=== PATIENT | male | born 1945 | race Caucasian/White ===

== ENCOUNTER 2018-05-27 19:06 | Emergency (ER) | payer MEDICARE ==
[2018-05-27] MEDS ORDERED: ONDANSETRON 4 MG ODT TABLET SL ONE (19:36)
[2018-05-27] MEDS ORDERED: ORPHENADRINE CITRATE 60MG/2ML VIAL IM ONE (19:36)
[2018-05-27] MEDS ORDERED: KETOROLAC 30 MG/ML VIAL IM ONE (19:36)
[2018-05-27] MEDS ORDERED: HYDROMORPHONE HCL 2 MG/ML VIAL IM ONE (19:36)
--- NOTE | 2018-05-27 19:44 | Emergency Department Record ---
History of Present Illness - General Chief Complaint: Back Pain/Injury Stated Complaint: BACK PAIN Time Seen by Provider: 05/27/18 19:22 Source: Patient Mode of Arrival: Ambulatory Limitations: No limitations - History of Present Illness Initial Comments: pt deveoped back pain last weekend while he was packing up his summer home. it has continued and gradually gotten worse. it radiates into his l buttock. he denies numbess and problems with his bowel or bladder. it has progressively gotten worse. Complaint: Back pain Onset/Timin -: Days(s) Similar Symptoms Previously: Yes Place: Home Radiation: Left leg, Flank Severity: Moderate Severity scale (1-10): 10 Quality: Aching, Sharp Consistency: Constant, Intermittent Improves With: Other Worsens With: Movement, Sitting upright Context: Bending, Turning/twisting, While lifting, Other Associated Symptoms: Denies other symptoms Treatments Prior to Arrival: Heat therapy, NSAIDS Treatment Prior to Arrival Comment:: 0900 2 ibuprofen - Related Data Home Medications Medication Instructions Recorded Confirmed Last Taken Lisinopril 20 mg PO DAILY 05/27/18 05/27/18 05/27/18 Lovastatin 20 mg PO QHS 05/27/18 05/27/18 05/26/18 Tamsulosin HCl [Flomax] 0.4 mg PO DAILY 05/27/18 05/27/18 05/27/18 Previous Rx's Medication Instructions Recorded Cyclobenzaprine HCl [Flexeril] 10 mg PO TID #10 tablet 05/27/18 Hydrocodone/Acetaminophen [Galata 1 each PO Q6HR #7 tablet 05/27/18 5-325 Tablet] Ibuprofen [Motrin 600Mg] 600 mg PO Q6H #20 tablet 05/27/18 Allergies Allergy/AdvReac Type Severity Reaction Status Date / Time meperidine Allergy Unknown ANAPHYLAXIS Verified 05/27/18 19:11 Travel Screening - Travel/Exposure Within Last 30 Days Have you traveled within the last 30 days?: No - Travel/Exposure Within Last Year Have you traveled outside the [place] in the last year?: No - Additonal Travel Details Have you been exposed to anyone with a communicable illness?: No - Travel Symptoms Symptom Screening: None Review of Systems Reviewed: No additional complaints except as noted below Constitutional: Reports: As per HPI. Denies: Chills, Fever, Malaise, Night sweats, Weakness, Weight change Eyes: Reports: As per HPI. Denies: Eye discharge, Eye pain, Photophobia, Vision change ENT: Reports: As per HPI. Denies: Congestion, Dental pain, Ear pain, Epistaxis , Hearing loss, Throat pain Respiratory: Reports: As per HPI. Denies: Cough, Dyspnea, Hemoptysis, Stridor, Wheezes Cardiovascular: Reports: As per HPI. Denies: Arrhythmia, Chest pain, Dyspnea on exertion, Edema, Murmurs, Orthopnea, Palpitations, Paroxysmal nocturnal dyspnea, Rheumatic Fever, Syncope Endocrine: Reports: As per HPI. Denies: Fatigue, Heat or cold intolerance, Polydipsia, Polyuria Gastrointestinal: Reports: As per HPI. Denies: Abdominal pain, Constipation, Diarrhea, Hematemesis, Hematochezia, Melena, Nausea, Vomiting Genitourinary: Reports: As per HPI. Denies: Dysuria, Frequency, Hematuria, Incontinence, Retention, Testicular pain, Testicular mass, Urgency Musculoskeletal: Reports: As per HPI. Denies: Arthralgia, Back pain, Gout, Joint swelling, Myalgia, Neck pain Skin: Reports: As per HPI. Denies: Bruising, Change in color, Change in hair/ nails, Lesions, Pruritus, Rash Neurological: Reports: As per HPI. Denies: Abnormal gait, Confusion, Headache, Numbness, Paresthesias, Seizure, Tingling, Tremors, Vertigo, Weakness Psychiatric: Reports: As per HPI. Denies: Anxiety, Auditory hallucinations, Depression, Homicidal thoughts, Suicidal thoughts, Visual hallucinations Hematological/Lymphatic: Reports: As per HPI. Denies: Anemia, Blood Clots, Easy bleeding, Easy bruising, Swollen glands Past Medical History - SOCIAL HISTORY Smoking Status: Never smoker Alcohol Use: Occasional Drug Use: None - RESPIRATORY Hx Respiratory Disorders: No - CARDIOVASCULAR Hx Cardio Disorders: Yes Hx Hypertension: Yes - NEURO Hx Neuro Disorders: Yes Hx of Migraines: Yes (many yrs ago) Hx TIA: Yes - GI Hx GI Disorders: No - Hx Genitourinary Disorders: Yes Hx Prostate Problems: Yes - ENDOCRINE Hx Endocrine Disorders: No - MUSCULOSKELETAL Hx Musculoskeletal Disorders: Yes Hx Arthritis: Yes - PSYCH Hx Psych Problems: No - HEMATOLOGY/ONCOLOGY Hx Hematology/Oncology Disorders: No Family Medical History Any Significant Family History?: No Physical Exam - General General Appearance: Alert, Oriented x3, Cooperative, No acute distress - Head Head exam: Normal inspection - Eye Eye exam: Normal appearance, PERRL, EOMI Pupils: Normal accommodation - ENT ENT exam: Normal exam, Mucous membranes moist, Normal external ear exam, Normal orophraynx Ear exam: Normal external inspection. negative: External canal tenderness Nasal Exam: Normal inspection. negative: Discharge, Sinus tenderness Mouth exam: Normal external inspection, Tongue normal Teeth exam: Normal inspection. negative: Dental caries Throat exam: Normal inspection. negative: Tonsillar erythema, Tonsillar exudate - Neck Neck exam: Normal inspection, Full ROM. negative: Tenderness - Respiratory Respiratory exam: Normal lung sounds bilaterally. negative: Respiratory distress - Cardiovascular Cardiovascular Exam: Regular rate, Normal rhythm, Normal heart sounds - GI/Abdominal GI/Abdominal exam: Soft, Normal bowel sounds. negative: Tenderness - Rectal Rectal exam: Deferred - exam: Deferred - Extremities Extremities exam: Normal inspection, Full ROM, Normal capillary refill. negative: Tenderness - Back Back exam: Reports: Full ROM, Muscle spasm, Tenderness. Denies: Rash noted - Neurological Neurological exam: Alert, CN II-XII intact, Normal gait, Oriented X3 - Psychiatric Psychiatric exam: Normal affect, Normal mood - Skin Skin exam: Dry, Intact, Normal color, Warm Course Vital Signs 05/27/18 19:14 Temperature 97.7 F Pulse Rate 80 Respiratory 20 Rate Blood Pressure 129/81 Pulse Ox 100 Disposition Disposition: Discharge Clinical Impression: Lumbar radiculopathy Disposition: Home, Self-Care Condition: (1) Good Instructions: Lumbar Disc Herniation (ED), Lumbar Radiculopathy (ED), Lower Back Exercises (ED) Additional Instructions: follow up with family doctor. return sooner if worse. ice and moist heat. no lifting more then 5 lbs for 5 days Prescriptions: Hydrocodone/Acetaminophen [Galata 5-325 Tablet] 1 each PO Q6HR #7 tablet Cyclobenzaprine HCl [Flexeril] 10 mg PO TID #10 tablet Ibuprofen [Motrin 600Mg] 600 mg PO Q6H #20 tablet Forms: Patient Portal Access Quality - Quality Measures Quality Measures: N/A - Blood Pressure Screening Does Patient Have Any of the Following: No Blood Pressure Classification: Pre-Hypertensive BP Reading Systolic Measurement: 129 Diastolic Measurement: 81 Screening for High Blood Pressure: < Pre-Hypertensive BP, F/U Documented > [ [id number]] Pre-Hypertensive Follow-up Interventions: Follow-up with rescreen every year.
--- NOTE | 2018-05-30 12:39 | RADIOLOGY REPORT ---
EXAM: LUMBAR SPINE HISTORY: PAIN NEAR LEFT SACROILIAC JOINT RADIATES DOWN LEFT LEG. TECHNIQUE: Three views of the lumbar spine were obtained. Comparison: None. FINDINGS: Lumbar vertebral body heights and alignment are maintained. Multilevel lumbar spine degenerative changes with end plate osteophytes at multiple levels. Multilevel lumbar facet arthrosis, greatest at the lower levels with suggested mild disk height loss at the two lowest disk levels. IMPRESSION: MULTILEVEL LUMBAR SPINE DEGENERATIVE CHANGES WITH AREAS OF DISK HEIGHT LOSS. JOB NUMBER: [id number] [facility] [place] [facility]
== END 2018-05-27 21:19 | disposition home or self-care (01) ==
LOC: ER 19:06
DX: M54.16 Radiculopathy, lumbar region (principal); I10 Essential (primary) hypertension; X50.3XXA Overexertion from repetitive movements, initial encounter; Y93.E6 Activity, residential relocation; Y92.009 Unspecified place in unspecified non-institutional (private) residence as the place of occurrence of the external cause
CPT/HCPCS: 99283 ×2; 96372; 72100; J1885; J1170; J2360